=== PATIENT | male | born 1985 | race Caucasian/White ===

== ENCOUNTER 2017-12-07 09:55 | Emergency (ER) | payer OTHER ==
[~2017-12-07] VITALS: Ht 195.6 cm; Wt 99.8 kg
[2017-12-07 10:02] VITALS: Ht 195.6 cm; Wt 99.8 kg
[2017-12-07 10:36] LABS: BASOPHIL % 1.6 % (0-2); PLATELET COUNT 193 x10^3mcL (130-400); RED CELL DISTRIBUTION WIDTH 13.6 % (11.5-14.5)
[2017-12-07 10:50] LABS: CALCIUM 9.6 mg/dL (8.5-10.1); CARBON DIOXIDE 27.6 mmol/L (21-32); CHLORIDE SERUM 104 mmol/L (98-107); CREATININE SERUM 0.8 mg/dL (0.7-1.3); GFR1 > 60 mL/min; GLUCOSE SERUM 94 mg/dL (74-106); SODIUM SERUM 138 mmol/L (136-145)
[2017-12-07 10:56] LABS: ALBUMIN 3.9 g/dL (3.4-5.0); ALKALINE PHOSPHATASE 146 U/L (46-116); ALT/SGPT 22 U/L (16-63); AST/SGOT 15 U/L (15-37); BILIRUBIN TOTAL 0.7 mg/dL (0.20-1.00)
[2017-12-07 11:04] LABS: TOTAL PROTEIN, SERUM 8.9 g/dL (6.4-8.2)
[2017-12-07 11:40] VITALS: BP 144/87
== END 2017-12-07 11:41 | disposition home or self-care (01) ==
LOC: ED 09:55
PROVIDERS: Emergency Medicine
DX: L08.89 Other specified local infections of the skin and subcutaneous tissue (principal); F15.10 Other stimulant abuse, uncomplicated
CPT/HCPCS: 36415